=== PATIENT | female | born 1955 | race Caucasian/White ===

== ENCOUNTER 2022-07-25 11:53 | Emergency (ER) | payer OTHER ==
[~2022-07-25] VITALS: Ht 167.6 cm; Wt 90.7 kg
[~2022-07-25 11:53] MED LIST: ALBU0.0912 IH; FLONAS; FLOV250; FLUO-387; LEVO0.087; PANT40EC56; SIMV-33
[2022-07-25] MEDS ORDERED: ALTEPLASE 100 MG VIAL IV ONE (12:00)
[2022-07-25] MEDS ORDERED: CODE BLUE PARTICIPANT 1 EA MISC MC ONE (12:00)
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
--- NOTE | 2022-07-25 12:20 | NUR ---
SPOKE TO [facility] WHO IS ON LUNCH , LEFT MESSAGE FOR MD TO SIGN CERTICATE
--- NOTE | 2022-07-25 12:24 | NUR ---
SPOKE TO [facility] PT MAY BE ELIGABLE FOR DONATION REFERENCE NUMBER [id number]
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
--- NOTE | 2022-07-25 12:31 | NUR ---
SPOKE TO JENNIFER AT [facility] STATES NEXT AVAILABLE [facility] PREPARATION OPERATOR WILL CALL
--- NOTE | 2022-07-25 13:34 | NUR ---
SON SPOKE TO DR GONZALEZ AT BEDSIDE
--- NOTE | 2022-07-25 15:20 | NUR ---
LEFT MESSAGE QUINN HALE AT [facility] PER PROTOCOL FOR PTS THAT HAVE
--- NOTE | 2022-07-25 16:10 | NUR ---
FOLLOWED UP WITH [facility], BRANDON STATES SHE WILL HAVE SOMEONE CALL ER FOR F/U ON CLEARANCE
--- NOTE | 2022-07-25 16:40 | NUR ---
SPOKE TO JOHANNA FROM [facility], STATES SHE WILL ATTEMPT TO CONTACT [facility] FOR MORE INFORMATION AND GET BACK TO US REGARDING BODY CLEARANCE
--- NOTE | 2022-07-25 16:55 | NUR ---
SPOKE TO JOHANNA FROM [facility] WHO STATES PT IS CLEARED FROM [facility].
--- NOTE | 2022-07-25 16:55 | NUR ---
ASKED JOHANNA FROM [facility] FOR CASE NUMBER JOHANNA STATES PT IS CLEARED AND DOES NOT NEED A CASE NUMBER AT THIS TIME
--- NOTE | 2022-07-25 17:50 | NUR ---
BELONGINGS NOTED AND GIVEN TO PATIENTS DAVID MORAES TO TAKE HOME.
--- NOTE | 2022-07-25 18:23 | NUR ---
mortuary at bedside to curing pickling packer pt.
== END 2022-07-25 12:09 ==
LOC: MED 11:53
DX: I46.9 Cardiac arrest, cause unspecified (principal); E03.9 Hypothyroidism, unspecified; J45.909 Unspecified asthma, uncomplicated; Z88.2 Allergy status to sulfonamides
CPT/HCPCS: 36556; 92950; 99291; J2997